=== PATIENT | male | born 1985 | race African-American/Black ===

== ENCOUNTER 2016-10-10 16:58 | Emergency (ER) | payer SELFPAY ==
[2016-10-10 17:04] VITALS: BP 160/119
[2016-10-10] MEDS ORDERED: NORMAL SALINE 1000 ML 1,000 ML IV ONE ×2 (17:15→18:18)
--- NOTE | 2016-10-10 17:20 | ER Document Report ---
ED General - General Chief Complaint: Abdominal Cramping Stated Complaint: DIZZINESS Time Seen by Provider: 10/10/16 17:14 Mode of Arrival: Ambulatory Information source: Patient Notes: 31-year-old male presents with complaints of abdominal cramping generalized weakness. Patient notes he works outside has not been hydrating well is only urinating twice a day. Patient concerned about dehydration. TRAVEL OUTSIDE OF THE [place] IN LAST 30 DAYS: No - HPI Onset: Other - 3 day duration Onset/Duration: Persistent Quality of pain: Achy, Cramping Severity: Mild Pain Level: 1 Associated symptoms: Weakness, Other Exacerbated by: Denies Relieved by: Denies Similar symptoms previously: No Recently seen / treated by doctor: No Past Medical History - Social History Smoking Status: Current Every Day Smoker Cigarette use (# per day): Yes Chew tobacco use (# tins/day): No Smoking Education Provided: No Family History: Reviewed & Not Pertinent Patient has suicidal ideation: No Patient has homicidal ideation: No - Past Medical History Cardiac Medical History: Reports: Hx Hypertension Renal/ Medical History: Denies: Hx Peritoneal Dialysis Review of Systems - Review of Systems Notes: REVIEW OF SYSTEMS: CONSTITUTIONAL : Denies fever, chills, or sweats. Denies recent illness. EENT: Denies eye, ear, throat, or mouth pain or symptoms. Denies nasal or sinus congestion or discharge. Denies throat, tongue, or mouth swelling or difficulty swallowing. CARDIOVASCULAR: Denies chest pain. Denies palpitations or racing or irregular heart beat. Denies ankle edema. RESPIRATORY: Denies cough, cold, or chest congestion. Denies shortness of breath, difficulty breathing, or wheezing. GASTROINTESTINAL: Admits to abdominal pain GENITOURINARY: Denies difficulty urinating, painful urination, burning, frequency, blood in urine, or discharge. MUSCULOSKELETAL: Denies back or neck pain or stiffness. Denies joint pain or swelling. SKIN: Denies rash, lesions or sores. HEMATOLOGIC : Denies easy bruising or bleeding. LYMPHATIC: Denies swollen, enlarged glands. NEUROLOGICAL: Generalized weakness PSYCHIATRIC: Denies anxiety or stress. Denies depression, suicidal ideation, or homicidal ideation. ALL OTHER SYSTEMS REVIEWED AND NEGATIVE. Dictation was performed using [employer] voice recognition software PHYSICAL EXAMINATION: GENERAL: Well-appearing, well-nourished and in no acute distress. HEAD: Atraumatic, normocephalic. EYES: Pupils equal round and reactive to light, extraocular movements intact, sclera anicteric, conjunctiva are normal. ENT: Nares patent, oropharynx clear without exudates. Moist mucous membranes. NECK: Normal range of motion, supple without lymphadenopathy LUNGS: Breath sounds clear to auscultation bilaterally and equal. No wheezes rales or rhonchi. HEART: Regular rate and rhythm without murmurs ABDOMEN: Soft, nontender, nondistended abdomen. No guarding, no rebound. No masses appreciated. Musculoskeletal: Normal range of motion, no pitting or edema. No cyanosis. NEUROLOGICAL: Cranial nerves grossly intact. Normal speech, normal gait. Normal sensory, motor exams PSYCH: Normal mood, normal affect. SKIN: Warm, Dry, normal turgor, no rashes or lesions noted. Physical Exam - Vital signs Vitals: Temp Pulse Resp BP Pulse Ox 98.3 F 94 14 160/119 H 100 10/10/16 17:00 10/10/16 17:00 10/10/16 17:00 10/10/16 17:00 10/10/16 17:00 Course - Re-evaluation Re-evalutation: 10/10/16 17:19 Presents with concerns for mild dehydration, overall looks quite well however we will rule out rhabdomyolysis given the exposure to heat and working outdoors 10/10/16 19:29 Creatinine is noted to be elevated at 1.54, CK is elevated as well however no significant sign of rhabdomyolysis, patient was given 2 L of fluids will be given supplemental potassium is otherwise well-appearing no distress I will discharge him home with very close follow. Mild elevation of liver enzymes are noted as well Patient has been made aware of all findings After performing a Medical Screening Examination, I estimate there is LOW risk for ACUTE APPENDICITIS, BOWEL OBSTRUCTION, ACUTE CHOLECYSTITIS, PERFORATED DIVERTICULITIS, INCARCERATED HERNIA, PANCREATITIS, or PERFORATED ULCER, thus I consider the discharge disposition reasonable. Also, there is no evidence or peritonitis, sepsis, or toxicity. I have reevaluated this patient multiple times and no significant life threatening changes are noted. The patient and I have discussed the diagnosis and risks, and we agree with discharging home with close follow-up with the understanding that symptoms and presentations can change. We also discussed returning to the Emergency Department immediately if new or worsening symptoms occur. We have discussed the symptoms which are most concerning (e.g., bloody stool, fever, changing or worsening pain, intractable vomiting - standard verbal up date) that necessitate immediate return. - Vital Signs Vital signs: Temp Pulse Resp BP Pulse Ox 98.3 F 94 14 160/119 H 100 10/10/16 17:00 10/10/16 17:00 10/10/16 17:00 10/10/16 17:00 10/10/16 17:00 - Laboratory Result Diagrams: 10/10/16 17:40 10/10/16 17:40 Laboratory results interpreted by me: 10/10/16 10/10/16 10/10/16 17:26 17:40 17:40 Monocytes % 13.1 H Potassium 3.3 L Chloride 95 L BUN 22 H Creatinine 1.56 H Est GFR (Non-Af Amer) 53 L Calcium 10.5 H Direct Bilirubin 0.5 H AST 126 H ALT 93 H Creatine Kinase 991 H Total Protein 10.2 H Albumin 5.3 H Urine Protein 30 H Urine Ketones TRACE H Urine Urobilinogen 2.0 H Discharge - Discharge Clinical Impression: Acute renal insufficiency, Dehydration, Elevated liver enzymes, Hypokalemia Condition: Stable Disposition: HOME, SELF-CARE Instructions: Dehydration ([facility]) Additional Instructions: Follow up with your physician tomorrow for further care or return to the ED IMMEDIATELY if symptoms worsen or new concerns occur. If you cannot afford to follow up with your primary care physician a list of low cost clinics have been provided at the end of your discharge papers as well.
[2016-10-10 17:43] LABS: AMORPHOUS SEDIMENT,URINE TRACE /HPF; APPEARANCE,URINE SLIGHTLY-CLOUDY; BILIRUBIN,URINE NEGATIVE (NEGATIVE); GLUCOSE, URINE NEGATIVE (NEGATIVE); KETONES,URINE TRACE mg/dL (NEGATIVE); LEUKOCYTE ESTERASE,URINE NEGATIVE (NEGATIVE); NITRITE,URINE NEGATIVE (NEGATIVE); PROTEIN,URINE 30 mg/dL (NEGATIVE); URINE SPECIFIC GRAVITY 1.026
[2016-10-10 18:03] LABS: ABSOLUTE EOSINOPHILS # (AUTO) 0.1 10^3/uL (0.0-0.6); ABSOLUTE MONOCYTES (AUTO) 0.7 10^3/uL (0.1-1.4); ABSOLUTE NEUT (AUTO) 2.6 10^3/uL (1.7-8.2); BASOPHILS % (AUTO) 0.8 % (0-2); EOSINOPHILS % (AUTO) 1.6 % (0-6); HEMATOCRIT 48.3 % (37.9-51.0); HEMOGLOBIN 16.5 g/dL (13.5-17.0); HGB HCT DIFFERENCE 1.2; LYMPHOCYTES % (AUTO) 36.8 % (13-45); MEAN CORPUSCULAR HEMOGLOBIN 30.6 pg (27.0-33.4); MEAN CORPUSCULAR HGB CONC 34.1 g/dL (32.0-36.0); MEAN CORPUSCULAR VOLUME 90 fl (80-97); MONOCYTES % (AUTO) 13.1 % (3-13); RED BLOOD COUNT 5.38 10^6/uL (4.35-5.55); SEGMENTED NEUTROPHILS % (AUTO) 47.7 % (42-78); WHITE BLOOD COUNT 5.4 10^3/uL (4.0-10.5)
[2016-10-10 18:12] LABS: ALANINE AMINOTRANSFERASE 93 U/L (21-72); ALBUMIN 5.3 g/dL (3.5-5.0); ALKALINE PHOSPHATASE 68 U/L (38-126); ANION GAP 18 (5-19); ASPARTATE AMINO TRANSFERASE 126 U/L (17-59); BILIRUBIN,DIRECT 0.5 mg/dL (0.0-0.4); BILIRUBIN,TOTAL 0.9 mg/dL (0.2-1.3); BLOOD UREA NITROGEN 22 mg/dL (7-20); CALCIUM 10.5 mg/dL (8.4-10.2); CARBON DIOXIDE 27 mmol/L (22-30); CHLORIDE 95 mmol/L (98-107); CREATINE KINASE 991 U/L (55-170); CREATININE RESULT 1.56 mg/dL (0.52-1.25); GLUCOSE 97 mg/dL (75-110); LIPASE 229.3 U/L (23-300); POTASSIUM 3.3 mmol/L (3.6-5.0); SODIUM 140.3 mmol/L (137-145); TOTAL PROTEIN 10.2 g/dL (6.3-8.2)
[2016-10-10] MEDS ORDERED: POTASSIUM CHLORIDE 10 MEQ TABLET.SA PO ONE (19:29)
== END 2016-10-10 19:48 | disposition home or self-care (01) ==
LOC: ER 16:58
DX: E86.0 Dehydration (principal); E87.6 Hypokalemia; R74.8 Abnormal levels of other serum enzymes; N28.9 Disorder of kidney and ureter, unspecified; R10.9 Unspecified abdominal pain; R53.1 Weakness; F17.210 Nicotine dependence, cigarettes, uncomplicated; I10 Essential (primary) hypertension
CPT/HCPCS: 99284; 36415; 82550; 83690; 85025; 80053; 81001; J7030

== ENCOUNTER 2017-10-07 11:38 | Emergency (ER) | payer SELFPAY ==
[2017-10-07 11:42] VITALS: BP 154/84
[2017-10-07] MEDS ORDERED: NORMAL SALINE 1000 ML 1,000 ML IV ONE ×2 (11:53→13:33)
--- NOTE | 2017-10-07 11:55 | ER Document Report ---
ED Medical Screen (RME) - General Chief Complaint: Dizziness Stated Complaint: DIZZINESS Time Seen by Provider: 10/07/17 11:49 Notes: RAPID MEDICAL EVALUATION DISCLOSURE I have seen this patient as part of a Rapid Medical Evaluation and, if applicable, placed any initially appropriate orders. The patient will be seen and fully evaluated, including a full history and physical exam, by a provider ( in Main ED or Fast Track) when a room becomes available. 32-year-old male here with complaints of generalized body cramps and lightheadedness ongoing for the past 1 week but progressively worsening. He has also had dark colored urine and has not urinated since yesterday evening despite having consumed 7 bottles of water. 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 He denies previous history of rhabdomyolysis. Denies previous history of acute renal failure. Denies heart failure. Exam CTAB RRR TRAVEL OUTSIDE OF THE [place] IN LAST 30 DAYS: No - Related Data Allergies/Adverse Reactions: No Known Allergies Allergy (Unverified 10/07/17 11:38) Past Medical History - Social History Chew tobacco use (# tins/day): No Frequency of alcohol use: Social Drug Abuse: None - Past Medical History Cardiac Medical History: Reports: Hx Hypertension Renal/ Medical History: Denies: Hx Peritoneal Dialysis Physical Exam - Vital signs Vitals: Temp Pulse Resp BP Pulse Ox 99.0 F 100 20 154/84 H 100 10/07/17 11:41 10/07/17 11:41 10/07/17 11:41 10/07/17 11:41 10/07/17 11:41 Course - Vital Signs Vital signs: Temp Pulse Resp BP Pulse Ox 99.0 F 100 20 154/84 H 100 10/07/17 11:41 10/07/17 11:41 10/07/17 11:41 10/07/17 11:41 10/07/17 11:41
[2017-10-07 12:30] LABS: ABSOLUTE BASOPHILS # (AUTO) 0.1 10^3/uL (0.0-0.2); ABSOLUTE LYMPHOCYTES (AUTO) 1.1 10^3/uL (0.5-4.7); ABSOLUTE MONOCYTES (AUTO) 0.8 10^3/uL (0.1-1.4); BASOPHILS % (AUTO) 1.2 % (0-2); EOSINOPHILS % (AUTO) 0.5 % (0-6); HEMATOCRIT 42.8 % (37.9-51.0); HEMOGLOBIN 14.9 g/dL (13.5-17.0); LYMPHOCYTES % (AUTO) 18.4 % (13-45); MEAN CORPUSCULAR HEMOGLOBIN 30.4 pg (27.0-33.4); MEAN CORPUSCULAR HGB CONC 34.7 g/dL (32.0-36.0); MEAN CORPUSCULAR VOLUME 88 fl (80-97); MONOCYTES % (AUTO) 13.4 % (3-13); PLATELET COUNT 256 10^3/uL (150-450); RED BLOOD COUNT 4.89 10^6/uL (4.35-5.55); RED CELL DISTRIBUTION WIDTH 14.2 % (11.5-14.0); SEGMENTED NEUTROPHILS % (AUTO) 66.5 % (42-78); TOTAL CELLS COUNTED % (AUTO) 100 %
[2017-10-07 12:51] LABS: ALANINE AMINOTRANSFERASE 139 U/L (21-72); ALBUMIN 5.9 g/dL (3.5-5.0); ALKALINE PHOSPHATASE 61 U/L (38-126); ANION GAP 18 (5-19); ASPARTATE AMINO TRANSFERASE 149 U/L (17-59); BILIRUBIN,DIRECT 0.5 mg/dL (0.0-0.4); BILIRUBIN,TOTAL 1.1 mg/dL (0.2-1.3); BLOOD UREA NITROGEN 16 mg/dL (7-20); CALCIUM 11.5 mg/dL (8.4-10.2); CARBON DIOXIDE 33 mmol/L (22-30); CHLORIDE 92 mmol/L (98-107); CREATINE KINASE 859 U/L (55-170); GLUCOSE 100 mg/dL (75-110); PHOSPHORUS 4.7 mg/dL (2.5-4.5); SODIUM 143.3 mmol/L (137-145); TOTAL PROTEIN 10.5 g/dL (6.3-8.2)
[2017-10-07 12:53] LABS: POTASSIUM 3.2 mmol/L (3.6-5.0)
[2017-10-07] MEDS ORDERED: DIAZEPAM INJ 10 MG/2 ML DISP.SYRIN IV ONE (13:34)
[2017-10-07] MEDS ORDERED: KETOROLAC TROMETHAMINE INJ/PF 30 MG/1 ML SDV IV ONE (13:41)
[2017-10-07] MEDS ORDERED: METOCLOPRAMIDE HCL INJ/PF 10 MG/2 ML SDV IV ONE (13:42)
[2017-10-07 14:24] LABS: APPEARANCE,URINE SLIGHTLY-CLOUDY; BILIRUBIN,URINE NEGATIVE (NEGATIVE); COLOR,URINE YELLOW; GLUCOSE, URINE NEGATIVE (NEGATIVE); KETONES,URINE TRACE mg/dL (NEGATIVE); LEUKOCYTE ESTERASE,URINE NEGATIVE (NEGATIVE); NITRITE,URINE NEGATIVE (NEGATIVE); PROTEIN,URINE NEGATIVE (NEGATIVE)
--- NOTE | 2017-10-07 14:26 | ER Document Report ---
ED Dizziness/Weakness - General Chief Complaint: Dizziness Stated Complaint: DIZZINESS Time Seen by Provider: 10/07/17 11:49 Mode of Arrival: Ambulatory Information source: Patient Notes: Patient is a 32-year-old male who presents to the ER today for upper and lower extremity cramping, dehydration, dizziness 2 days. Patient states that he works outside and has not been allowed to drink a lot of water by his employer over the past week. It has been upwards of 90 outside every day. Patient had the exact same thing happened last October. He denies any medical history stating that he is very healthy otherwise. TRAVEL OUTSIDE OF THE [place] IN LAST 30 DAYS: No - Related Data Allergies/Adverse Reactions: No Known Allergies Allergy (Unverified 10/07/17 11:38) Past Medical History - General Information source: Patient - Social History Smoking Status: Current Every Day Smoker Chew tobacco use (# tins/day): No Frequency of alcohol use: Social Drug Abuse: None Family History: Reviewed & Not Pertinent Patient has suicidal ideation: No Patient has homicidal ideation: No - Past Medical History Cardiac Medical History: Reports: Hx Hypertension Renal/ Medical History: Denies: Hx Peritoneal Dialysis Review of Systems - Review of Systems Constitutional: No symptoms reported EENT: No symptoms reported Cardiovascular: No symptoms reported Respiratory: No symptoms reported Gastrointestinal: No symptoms reported Genitourinary: No symptoms reported Male Genitourinary: No symptoms reported Musculoskeletal: See HPI Skin: No symptoms reported Hematologic/Lymphatic: No symptoms reported Neurological/Psychological: No symptoms reported Physical Exam - Vital signs Vitals: Temp Pulse Resp BP Pulse Ox 99.0 F 100 20 154/84 H 100 10/07/17 11:41 10/07/17 11:41 10/07/17 11:41 10/07/17 11:41 10/07/17 11:41 - Notes Notes: PHYSICAL EXAMINATION: GENERAL: Well-appearing and in no acute distress. HEAD: Atraumatic, normocephalic. EYES: Pupils equal round and reactive to light, extraocular movements intact, sclera anicteric, conjunctiva are normal. ENT: ear canals without erythema or foreign body, TMs pearly lloyd with good bony landmarks, nares patent, oropharynx clear without exudates. Moist mucous membranes. NECK: Normal range of motion, supple without lymphadenopathy LUNGS: CTAB and equal. No wheezes rales or rhonchi. HEART: Regular rate and rhythm without murmurs ABDOMEN: Soft, no tenderness. No guarding, no rebound BACK: no vertebral tenderness, normal ROM GI/: no CVA tenderness EXTREMITIES: Normal range of motion, no pitting edema. No cyanosis. NEUROLOGICAL: Cranial nerves grossly intact. Normal sensory/motor exams. PSYCH: Normal mood, normal affect. SKIN: Warm, Dry, normal turgor, no rashes or lesions noted Course - Re-evaluation Re-evalutation: 10/07/17 14:23 Liver enzymes are elevated, CK is 890, kidney function mildly elevated with a 1.4 creatinine. Patient does not want to stay. He feels much better after 1 L of fluids, we will give him another liter of fluids and I will send him home with a few Valium to help with his muscle cramping. He is advised to stay home , out of the heat and drink plenty of water over the next couple of days, return with any worsening symptoms. I did offer him admission today but he declines. - Vital Signs Vital signs: Temp Pulse Resp BP Pulse Ox 99.0 F 100 20 154/84 H 100 10/07/17 11:41 10/07/17 11:41 10/07/17 11:41 10/07/17 11:41 10/07/17 11:41 - Laboratory Result Diagrams: 10/07/17 12:15 10/07/17 12:15 Laboratory results interpreted by me: 10/07/17 10/07/17 12:15 12:15 RDW 14.2 H Monocytes % 13.4 H Potassium 3.2 L Chloride 92 L Carbon Dioxide 33 H Creatinine 1.49 H Est GFR (Non-Af Amer) 55 L Calcium 11.5 H Phosphorus 4.7 H Direct Bilirubin 0.5 H AST 149 H ALT 139 H Creatine Kinase 859 H Total Protein 10.5 H Albumin 5.9 H Discharge - Discharge Clinical Impression: Heat exhaustion due to water depletion Qualifiers: Encounter type: initial encounter Qualified Code(s): T67.3XXA - Heat exhaustion , anhydrotic, initial encounter Condition: Stable Disposition: HOME, SELF-CARE Additional Instructions: Return immediately for any new or worsening symptoms. Follow up with primary care provider, call tomorrow to make followup appointment. Please drink at least 90 ounces of water a day for at least the next 5 days to replenish your water and stay out of the heat as much as possible. Prescriptions: Diazepam [Valium 2 mg Tablet] 2 mg PO Q6HP PRN #5 tablet PRN Reason: Forms: Return to Work
== END 2017-10-07 15:54 | disposition home or self-care (01) ==
LOC: ER 11:38
DX: T67.3XXA Heat exhaustion, anhydrotic, initial encounter (principal); R42 Dizziness and giddiness; E86.0 Dehydration; R25.2 Cramp and spasm; F17.200 Nicotine dependence, unspecified, uncomplicated; R74.8 Abnormal levels of other serum enzymes
CPT/HCPCS: 99284; 96360; 96361; 36415; 82550; 83735; 84100; 85025; 80053; 81001; J7030

== ENCOUNTER 2017-10-19 10:15 | Emergency (ER) | payer SELFPAY ==
[2017-10-19] MEDS ORDERED: NORMAL SALINE 1000 ML 1,000 ML IV ONE (10:24)
[2017-10-19] MEDS ORDERED: ONDANSETRON 4 MG TAB.RAPDIS SL ONE (10:24)
--- NOTE | 2017-10-19 10:26 | ER Document Report ---
ED Medical Screen (RME) - General Chief Complaint: Abdominal Pain Stated Complaint: POSSIBLE DEHYDRATION Time Seen by Provider: 10/19/17 10:20 Mode of Arrival: Ambulatory Information source: Patient TRAVEL OUTSIDE OF THE [place] IN LAST 30 DAYS: No - HPI Patient complains to provider of: Dehydration, diffuse cramping, vomiting Onset: Yesterday Onset/Duration: Gradual, Persistent, Worse Quality of pain: Achy, Cramping Severity: Moderate Pain Level: 3 Associated Symptoms: Nausea, Vomiting Exacerbated by: Denies Relieved by: Denies Similar symptoms previously: Yes Recently seen / treated by doctor: Yes Notes: 10/19/17 10:25 Patient is a 32-year-old otherwise healthy male presenting to the emergency room for a second time complaining of dehydration with diffuse body aches and cramping, as well as vomiting that started yesterday, 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, he has been drinking water supplemented with Pedialyte and increased amounts but his symptoms continued to worsen, he reports minimal urine production as well - Related Data Allergies/Adverse Reactions: No Known Allergies Allergy (Verified 10/19/17 10:15) Past Medical History - Past Medical History Cardiac Medical History: Reports: Hx Hypertension Renal/ Medical History: Denies: Hx Peritoneal Dialysis Physical Exam - Vital signs Vitals: Temp Pulse Resp BP Pulse Ox 98.8 F 93 14 153/81 H 99 10/19/17 10:19 10/19/17 10:19 10/19/17 10:19 10/19/17 10:19 10/19/17 10:19 Course - Vital Signs Vital signs: Temp Pulse Resp BP Pulse Ox 98.8 F 93 14 153/81 H 99 10/19/17 10:19 10/19/17 10:19 10/19/17 10:19 10/19/17 10:19 10/19/17 10:19
[2017-10-19 10:59] LABS: ABSOLUTE LYMPHOCYTES (AUTO) 1.3 10^3/uL (0.5-4.7); ABSOLUTE MONOCYTES (AUTO) 0.6 10^3/uL (0.1-1.4); ABSOLUTE NEUT (AUTO) 2.9 10^3/uL (1.7-8.2); EOSINOPHILS % (AUTO) 0.6 % (0-6); HEMATOCRIT 42.6 % (37.9-51.0); LYMPHOCYTES % (AUTO) 26.7 % (13-45); MEAN CORPUSCULAR HEMOGLOBIN 30.4 pg (27.0-33.4); MEAN CORPUSCULAR HGB CONC 35.1 g/dL (32.0-36.0); MEAN CORPUSCULAR VOLUME 87 fl (80-97); MONOCYTES % (AUTO) 12.9 % (3-13); PLATELET COUNT 281 10^3/uL (150-450); RED BLOOD COUNT 4.92 10^6/uL (4.35-5.55); RED CELL DISTRIBUTION WIDTH 14.5 % (11.5-14.0); SEGMENTED NEUTROPHILS % (AUTO) 58.8 % (42-78); TOTAL CELLS COUNTED % (AUTO) 100 %; WHITE BLOOD COUNT 4.9 10^3/uL (4.0-10.5)
[2017-10-19 11:42] LABS: ALANINE AMINOTRANSFERASE 98 U/L (21-72); ALBUMIN 5.4 g/dL (3.5-5.0); ALKALINE PHOSPHATASE 56 U/L (38-126); ANION GAP 18 (5-19); ASPARTATE AMINO TRANSFERASE 134 U/L (17-59); BILIRUBIN,DIRECT 0.4 mg/dL (0.0-0.4); BILIRUBIN,TOTAL 0.9 mg/dL (0.2-1.3); BLOOD UREA NITROGEN 21 mg/dL (7-20); CALCIUM 10.6 mg/dL (8.4-10.2); CARBON DIOXIDE 33 mmol/L (22-30); CHLORIDE 91 mmol/L (98-107); CREATINE KINASE 975 U/L (55-170); GLUCOSE 107 mg/dL (75-110)
[2017-10-19] MEDS ORDERED: POTASSIUM CHLORIDE 10 MEQ CAPSULE.ER PO ONE (11:48)
[2017-10-19] MEDS ORDERED: POTASSI CL 40 MEQ/D5-1/2NS 1L 40 MEQ/1,000 ML RTUINJ IV ONE (11:49)
[2017-10-19 11:57] LABS: APPEARANCE,URINE SLIGHTLY-CLOUDY; BILIRUBIN,URINE NEGATIVE (NEGATIVE); COLOR,URINE YELLOW; GLUCOSE, URINE NEGATIVE (NEGATIVE); KETONES,URINE TRACE mg/dL (NEGATIVE); LEUKOCYTE ESTERASE,URINE NEGATIVE (NEGATIVE); NITRITE,URINE NEGATIVE (NEGATIVE); PROTEIN,URINE NEGATIVE (NEGATIVE); URINE SPECIFIC GRAVITY 1.012; UROBILINOGEN,URINE NEGATIVE mg/dL (<2.0)
--- NOTE | 2017-10-19 15:10 | ER Document Report ---
ED General - General Chief Complaint: Abdominal Pain Stated Complaint: POSSIBLE DEHYDRATION Time Seen by Provider: 10/19/17 10:20 Mode of Arrival: Ambulatory Notes: Patient presents to the emergency department feeling weak and having cramps, primarily in the lower extremities in the feet, calves, and thighs, as well as in his hands. This is been going on for the past couple of days, since Tuesday. He also had a similar occurrence about 2 weeks ago and was seen here and received IV fluids and was discharged. Noted on that visit the patient's CPK level was in the 800s. Patient says he works outside, [employer], where it is been very hot and humid recently. Says he vomited once last night and again today. No diarrhea. No fevers. TRAVEL OUTSIDE OF THE [place] IN LAST 30 DAYS: No - Related Data Allergies/Adverse Reactions: No Known Allergies Allergy (Verified 10/19/17 10:15) Past Medical History - General Information source: Patient - Social History Smoking Status: Current Every Day Smoker Chew tobacco use (# tins/day): No Frequency of alcohol use: Social Drug Abuse: None Family History: Reviewed & Not Pertinent Patient has suicidal ideation: No Patient has homicidal ideation: No - Past Medical History Cardiac Medical History: Reports: Hx Hypertension Review of Systems - Review of Systems Notes: REVIEW OF SYSTEMS: CONSTITUTIONAL : Denies fever. EENT: Denies eye, ear, nose or mouth or throat pain or other symptoms. CARDIOVASCULAR: Denies chest pain. RESPIRATORY: Denies cough, chest congestion, or shortness of breath. GASTROINTESTINAL: Denies abdominal pain but has had nausea and did vomit a couple of times. No diarrhea. GENITOURINARY: Denies difficulty or painful urinating, urinary frequency, blood in urine. MUSCULOSKELETAL: Denies back or neck pain. Denies joint pain or swelling. SKIN: Denies rash or skin lesions. NEUROLOGICAL: Denies LOC or altered mental status. Denies headache. Denies sensory loss or motor deficits. ALL OTHER SYSTEMS REVIEWED AND NEGATIVE. Physical Exam - Vital signs Vitals: Temp Pulse Resp BP Pulse Ox 98.8 F 93 14 153/81 H 99 10/19/17 10:19 10/19/17 10:19 10/19/17 10:19 10/19/17 10:19 10/19/17 10:19 Interpretation: Normal - Notes Notes: PHYSICAL EXAMINATION: GENERAL: Well-appearing, in no acute distress. First IV is almost completely infused. Not having much cramping now. HEAD: Atraumatic, normocephalic. EYES: Pupils equal round and reactive to light, extraocular movements intact. ENT: oropharynx clear without exudates. Moist mucous membranes. NECK: Normal range of motion, supple. LUNGS: Breath sounds clear and equal bilaterally. HEART: Regular rate and rhythm without murmurs. ABDOMEN: Soft, nontender. No guarding or rebound. No masses. BACK: No tenderness throughout entire back. EXTREMITIES: Normal range of motion without pain. NEUROLOGICAL: Normal speech, normal gait. Normal sensory, motor, and reflex exams. Awake, alert, and oriented x3. Cranial nerves normal. PSYCH: Normal mood, normal affect. SKIN: Warm, dry, no rashes. Course - Re-evaluation Re-evalutation: 10/19/17 15:19 Discussed patient's lab findings with him. Specifically discussed his elevated CPK level. Pointed out to him that it is potentially a serious threat to his kidneys and he must avoid continuing to have an elevated CPK, as it was elevated when he was here a couple weeks ago, also. I have given him a note for work until Tuesday. Told him he needs to drink plenty of fluids and hydrate himself well over the weekend. Note for work until Tuesday. Advised him to have repeat blood work done next week to see that his kidney functions are doing better and that the CPK level is declining. - Vital Signs Vital signs: Temp Pulse Resp BP Pulse Ox 98.1 F 93 21 H 123/83 97 10/19/17 15:01 10/19/17 10:19 10/19/17 15:01 10/19/17 15:01 10/19/17 15:01 - Laboratory Result Diagrams: 10/19/17 10:42 10/19/17 10:42 Laboratory results interpreted by me: 10/19/17 10/19/17 10/19/17 10:42 10:42 11:40 RDW 14.5 H Potassium 3.0 L* Chloride 91 L Carbon Dioxide 33 H BUN 21 H Creatinine 1.28 H Calcium 10.6 H AST 134 H ALT 98 H Creatine Kinase 975 H Total Protein 10.0 H Albumin 5.4 H Urine Ketones TRACE H Urine Blood SMALL H Discharge - Discharge Clinical Impression: Heat cramps, Dehydration, Elevated CPK Condition: Stable Disposition: HOME, SELF-CARE Additional Instructions: Dehydration Dehydration can result from vomiting or diarrhea, fever, or decreased intake of fluids. If severe, hospitalization and intravenous fluids may be required. Most cases are treated at home with fluids by mouth. For the next 24 hours, drink lots of clear fluids. In mild cases, this can be soda pop or sports drinks. For more severe dehydration, the doctor may recommend special fluids such as Pedialyte or Lytren. Try to get three liters ( 3 quarts) of fluid per day. If vomiting occurs, continue to drink the fluids frequently (every 15 to 20 minutes), but in small amounts (one or two ounces). Depending on the type of dehydration, the doctor may prescribe antinausea medicine or potassium replacements. Call the doctor or return for re-examination if you become progressively weak, vomit repeatedly, or have other new symptoms. Intravenous (IV) Fluids As part of your care today, you received intravenous (IV) fluids. IV fluids are administered to patients who are dehydrated or to those who have certain chemical (electrolyte) abnormalities that need correcting. There is a chemical called creatinine phosphokinase or CPK for short that is in your body that comes from damaged muscle cells when you become overheated or over exercise. This chemical is important because it can cause permanent kidney damage. It is very important that you not get yourself into the same condition you were and when you came in today. We recommend that you have your kidney functions and the level of the CPK rechecked in about 5 days. A primary care provider can order that for you. Drink plenty of fluids. I am giving her a note for work until Tuesday. Avoid getting overheated and over exerted when you do return to work. FOLLOW-UP CARE: If you have been referred to a physician for follow-up care, call the physician s office for an appointment as you were instructed or within the next two days. If you experience worsening or a significant change in your symptoms, notify the physician immediately or return to the Emergency Department at any time for re-evaluation. Forms: Return to Work
[2017-10-19 15:32] VITALS: BP 123/83
== END 2017-10-19 15:32 | disposition home or self-care (01) ==
LOC: ER 10:15
DX: T67.2XXA Heat cramp, initial encounter (principal); X58.XXXA Exposure to other specified factors, initial encounter; E86.0 Dehydration; R94.4 Abnormal results of kidney function studies; R10.9 Unspecified abdominal pain
CPT/HCPCS: 99284; 96361; 96365; 96366; 36415; 82553; 82550; 83735; 85025; 80053; 81001; J3480; S0119; J7030

== ENCOUNTER 2018-08-14 12:08 | Emergency (ER) | payer SELFPAY ==
--- NOTE | 2018-08-14 13:22 | ER Document Report ---
HPI - HPI Time Seen by Provider: 08/14/18 12:46 Pain Level: 4 Context: Patient is a 33-year-old male who presents the emergency department with a chief complaint of right duffy pain. He hit his duffy on a tow hitch 4 days ago. He states that there has been some swelling and erythema to the area. States that the swelling has gone down a little bit, but was worried for possible infection. He denies any fever. He did see some swelling. - CONSTITUTIONAL Constitutional: DENIES: Fever, Chills - EENT EENT: DENIES: Sore Throat, Ear Pain - NEURO Neurology: DENIES: Headache, Weakness, Vision blurred, Dizzinesss / Vertigo - CARDIOVASCULAR Cardiovascular: DENIES: Chest pain - RESPIRATORY Respiratory: DENIES: Trouble Breathing, Coughing - GASTROINTESTINAL Gastrointestinal: DENIES: Abdominal Pain, Nausea, Patient vomiting - MUSCULOSKELETAL Musculoskeletal: REPORTS: Extremity pain - Right duffy, Swelling - Right duffy - DERM Skin Color: Normal Skin Problems: None Past Medical History - Social History Smoking Status: Never Smoker Family History: Reviewed & Not Pertinent - Past Medical History Cardiac Medical History: Reports: Hx Hypertension Renal/ Medical History: Denies: Hx Peritoneal Dialysis Vertical Provider Document - CONSTITUTIONAL Agree With Documented VS: Yes Exam Limitations: No Limitations General Appearance: No Apparent Distress - INFECTION CONTROL TRAVEL OUTSIDE OF THE [place] IN LAST 30 DAYS: No - HEENT HEENT: Atraumatic, Normocephalic, PERRLA - NECK Neck: Normal Inspection - RESPIRATORY Respiratory: Breath Sounds Normal, No Respiratory Distress - CARDIOVASCULAR Cardiovascular: Regular Rate, Regular Rhythm Pulses: Normal: Radial, Posterior tibial, Dorsalis pedis - GI/ABDOMEN Gastrointestinal: Abdomen Soft - MUSCULOSKELETAL/EXTREMETIES Musculoskeletal/Extremeties: FROM, Tender - Left duffy, Edema - Left duffy, with erythema - NEURO Level of Consciousness: Awake, Alert, Appropriate Motor/Sensory: No Motor Deficit, No Sensory Deficit, No Pronator Drift - DERM Integumentary: Warm, Dry, Abscess - Left duffy Course - Re-evaluation Re-evalutation: 08/14/18 13:22 Bedside ultrasound was done by myself, and pockets of fluid were noted in the area, consistent with an abscess and surrounding cellulitis. Incision and drainage will be done. He will also be given Anderson to help with his pain. 08/14/18 14:29 Patient's x-ray is negative for any acute fracture. Incision and drainage was made in the patient's right duffy. There was some purulent drainage noted the procedure, along with some clots. He will be started on Keflex and Bactrim. Verbal discharge instructions were given to the patient. They verbalized understanding. They are stable for discharge. - Vital Signs Vital signs: Temp Pulse Resp BP Pulse Ox 99.2 F 80 18 167/100 H 100 08/14/18 12:18 08/14/18 12:18 08/14/18 12:18 08/14/18 12:18 08/14/18 12:18 Procedures - Incision and Drainage Right duffy Type: Simple Anesthetic type: 1% Lidocaine mL's of anesthetic: 5 Blade size: 11 I&D procedure: Betadine prep applied, Shurclens applied Incision Method: Incision made by scalpel Amount/type of drainage: 10 mls blood/purulent drainage; blood clots - Immobilization Right Leg Pre-Proc Neuro Vasc Exam: Normal Immobilizer type: Phillip wrap Performed by: PCT Post-Proc Neuro Vasc Exam: Normal, Unchanged from pre-exam Alignment checked and good: Yes Discharge - Discharge Clinical Impression: Abscess Cellulitis Qualifiers: Site of cellulitis: extremity Site of cellulitis of extremity: lower extremity Laterality: right Qualified Code(s): L03.115 - Cellulitis of right lower limb Condition: Stable Disposition: HOME, SELF-CARE Instructions: Abscess ([facility]), Cephalexin ([facility]), Post Incision and Drainage, Trimethoprim-Sulfa ([facility]) Additional Instructions: You were seen for an abscess that required drainage. Please clean this area with soap and water twice daily and apply a topical antibiotic. Dress the area after each cleaning. Please take all your medication as prescribed. Continue to apply the Phillip wrap to help with swelling. You can take Tylenol 1000 mg and Motrin 600 mg every 6 hours for your pain. Please return if you develop fever, vomiting, the pain at the site worsens, you notice spreading redness from the area, or you have any other symptoms that are concerning to you. Prescriptions: Cephalexin Monohydrate [Keflex 500 mg Capsule] 500 mg PO Q6H 7 Days #28 capsule Sulfamethoxazole/Trimethoprim [Bactrim Ds Tablet] 1 each PO BID 7 Days #14 tablet Forms: Return to Work Referrals: [facility] [Provider Group] - Follow up as needed
[2018-08-14] MEDS ORDERED: HYDROCODONE/ACETAMINOPHEN 5-325 MG TABLET PO ONE (13:23)
[2018-08-14] MEDS ORDERED: LIDOCAINE 1% INJ-PF (10 MG/ML) 30 ML SDV INJ ONE (13:23)
--- NOTE | 2018-08-14 13:56 | RADIOLOGY REPORT (SQ) ---
EXAM DESCRIPTION: TIBIA FIBULA RIGHT COMPLETED DATE/TIME: 08/14/2018 1:44 pm REASON FOR STUDY: contusion/swelling COMPARISON: None. NUMBER OF VIEWS: Two views. TECHNIQUE: Two radiographic images acquired of the right tibia and fibula to include the knee and an kle in at least one projection. LIMITATIONS: None. FINDINGS: MINERALIZATION: Normal. BONES: No acute fracture or dislocation. No worrisome bone lesions. SOFT TISSUES: Anterior soft tissue swelling. No foreign body. OTHER: No other significant finding. IMPRESSION: ANTERIOR SOFT TISSUE SWELLING. NO FRACTURE OR OTHER SIGNIFICANT FINDINGS. TECHNICAL DOCUMENTATION: JOB ID: [id number] [employer]- All Rights Reserved Reading location - IP/workstation name: [email or web address]
[2018-08-14 14:55] VITALS: BP 156/107
== END 2018-08-14 14:55 | disposition home or self-care (01) ==
LOC: ER 12:08
DX: L02.416 Cutaneous abscess of left lower limb (principal); L03.115 Cellulitis of right lower limb; M79.661 Pain in right lower leg; W22.8XXA Striking against or struck by other objects, initial encounter; I10 Essential (primary) hypertension
CPT/HCPCS: 99283; 73590; 10060; J3490

== ENCOUNTER 2018-08-23 14:31 | Emergency (ER) | payer SELFPAY ==
[2018-08-23] MEDS ORDERED: ONDANSETRON HCL INJ/PF 4 MG/2 ML SDV IV ONE (15:50)
[2018-08-23] MEDS ORDERED: METHOCARBAMOL 750 MG TABLET PO ONE (15:51)
--- NOTE | 2018-08-23 15:55 | ER Document Report ---
ED Medical Screen (RME) - General Chief Complaint: Urinary Problem Stated Complaint: BODY CRAMPING Time Seen by Provider: 08/23/18 15:44 TRAVEL OUTSIDE OF THE [place] IN LAST 30 DAYS: No - HPI Notes: 08/23/18 15:52 Patient is a 33-year-old male with a previous history of heat exhaustion who presents complaining of generalized body cramping, anuric x36 hours and intermittent nausea that began yesterday. 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 Patient states that he has been pushing fluids especially he can, but states that he still feels dehydrated. Denies drug allergies. He was seen about 9 days ago and had an incision and drainage performed to his right anterior lower leg and was placed on Bactrim as well as Keflex. Patient has continued to notice swelling to the leg, but it is improved from initial onset. Denies RAMOS, fever, neck pain, URI, CP, SOB, Abd pain. I have treated and performed a rapid initial assessment of this patient. A comprehensive ED assessment and evaluation of the patient, analysis of test results and completion of medical decision making process will be conducted by additional ED providers. PHYSICAL EXAMINATION: GENERAL: Well-appearing, well-nourished and in no acute distress. A&Ox4. Answers questions appropriately. LUNGS: Breath sounds clear to auscultation bilaterally and equal. No wheezes rales or rhonchi. HEART: Regular rate and rhythm without murmurs, rubs, gallops. - Related Data Allergies/Adverse Reactions: No Known Allergies Allergy (Verified 08/23/18 14:34) Past Medical History - Past Medical History Cardiac Medical History: Reports: Hx Hypertension Renal/ Medical History: Denies: Hx Peritoneal Dialysis Physical Exam - Vital signs Vitals: Temp Pulse Resp BP Pulse Ox 98.3 F 85 18 142/99 H 99 08/23/18 14:45 08/23/18 14:45 08/23/18 14:45 08/23/18 14:45 08/23/18 14:45 Course - Vital Signs Vital signs: Temp Pulse Resp BP Pulse Ox 98.3 F 85 18 142/99 H 99 08/23/18 14:45 08/23/18 14:45 08/23/18 14:45 08/23/18 14:45 08/23/18 14:45
[2018-08-23] MEDS: NORMAL SALINE 1000 ML 1,000 ML IV PRN ×2 (16:50→17:48)
[2018-08-23 17:08] LABS: ABSOLUTE EOSINOPHILS # (AUTO) 0.1 10^3/uL (0.0-0.6); ABSOLUTE LYMPHOCYTES (AUTO) 1.1 10^3/uL (0.5-4.7); ABSOLUTE MONOCYTES (AUTO) 0.7 10^3/uL (0.1-1.4); ABSOLUTE NEUT (AUTO) 2.5 10^3/uL (1.7-8.2); BASOPHILS % (AUTO) 0.9 % (0-2); EOSINOPHILS % (AUTO) 1.2 % (0-6); HEMATOCRIT 43.2 % (37.9-51.0); HEMOGLOBIN 14.7 g/dL (13.5-17.0); LYMPHOCYTES % (AUTO) 25.7 % (13-45); MEAN CORPUSCULAR HEMOGLOBIN 30.6 pg (27.0-33.4); MEAN CORPUSCULAR HGB CONC 34.1 g/dL (32.0-36.0); MEAN CORPUSCULAR VOLUME 90 fl (80-97); MONOCYTES % (AUTO) 15.8 % (3-13); PLATELET COUNT 247 10^3/uL (150-450); RED BLOOD COUNT 4.81 10^6/uL (4.35-5.55); RED CELL DISTRIBUTION WIDTH 14.9 % (11.5-14.0); SEGMENTED NEUTROPHILS % (AUTO) 56.4 % (42-78); TOTAL CELLS COUNTED % (AUTO) 100 %; WHITE BLOOD COUNT 4.3 10^3/uL (4.0-10.5)
[2018-08-23 17:28] LABS: ALANINE AMINOTRANSFERASE 122 U/L (21-72); ALBUMIN 5.5 g/dL (3.5-5.0); ALKALINE PHOSPHATASE 77 U/L (38-126); ANION GAP 16 (5-19); ASPARTATE AMINO TRANSFERASE 135 U/L (17-59); BILIRUBIN,DIRECT 0.5 mg/dL (0.0-0.4); BILIRUBIN,TOTAL 1.3 mg/dL (0.2-1.3); BLOOD UREA NITROGEN 19 mg/dL (7-20); CARBON DIOXIDE 30 mmol/L (22-30); CHLORIDE 97 mmol/L (98-107); CREATINE KINASE 709 U/L (55-170); GLUCOSE 86 mg/dL (75-110); POTASSIUM 3.7 mmol/L (3.6-5.0); SODIUM 142.5 mmol/L (137-145); TOTAL PROTEIN 10.2 g/dL (6.3-8.2)
[2018-08-23] MEDS ORDERED: NORMAL SALINE 1000 ML 1,000 ML IV ONE (19:33)
[2018-08-23 19:56] LABS: APPEARANCE,URINE TURBID; BILIRUBIN,URINE NEGATIVE (NEGATIVE); GLUCOSE, URINE NEGATIVE (NEGATIVE); KETONES,URINE TRACE mg/dL (NEGATIVE); LEUKOCYTE ESTERASE,URINE NEGATIVE (NEGATIVE); NITRITE,URINE NEGATIVE (NEGATIVE); PROTEIN,URINE 100 mg/dL (NEGATIVE)
[2018-08-23 20:03] LABS: COLOR,URINE YELLOW
--- NOTE | 2018-08-23 20:41 | ER Document Report ---
ED General - General Chief Complaint: Urinary Problem Stated Complaint: BODY CRAMPING Time Seen by Provider: 08/23/18 15:44 Mode of Arrival: Ambulatory Information source: Patient, [facility] Records Notes: Patient is a 33-year-old male with a previous history of heat exhaustion who presents complaining of generalized body cramping, anuric x36 hours and intermittent nausea that began yesterday. 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 Patient states that he has been pushing fluids especially he can, but states that he still feels dehydrated. Denies drug allergies. He was seen about 9 days ago and had an incision and drainage performed to his right anterior lower leg and was placed on Bactrim as well as Keflex. Patient has continued to notice swelling to the leg, but it is improved from initial onset. Denies RAMOS, fever, neck pain, URI, CP, SOB, Abd pain. TRAVEL OUTSIDE OF THE [place] IN LAST 30 DAYS: No - Related Data Allergies/Adverse Reactions: No Known Allergies Allergy (Verified 08/23/18 14:34) Past Medical History - General Information source: Patient - Social History Smoking Status: Current Every Day Smoker Cigarette use (# per day): Yes - 10 Chew tobacco use (# tins/day): No Smoking Education Provided: Yes - Smoking cessation counseling was provided for 4 minutes at the bedside Frequency of alcohol use: Occasional Drug Abuse: None Lives with: Family Family History: Reviewed & Not Pertinent Patient has suicidal ideation: No Patient has homicidal ideation: No - Past Medical History Cardiac Medical History: Reports: Hx Hypertension Renal/ Medical History: Denies: Hx Peritoneal Dialysis Review of Systems - Review of Systems Notes: REVIEW OF SYSTEMS: CONSTITUTIONAL : Denies fever, chills, or sweats. Denies recent illness. Denies weight loss, recent hospitalizations. EENT: Denies visual changes, eye pain. Denies sore throat, oral lesions, difficulty swallowing. CARDIOVASCULAR: Denies chest pain. Denies palpitations. Denies lower extremity edema. RESPIRATORY: Denies cough. Denies shortness of breath, wheezing. GASTROINTESTINAL: Denies abdominal pain or distention. Denies nausea, vomiting , or diarrhea. Denies blood in vomitus, stools, or per rectum. Denies black, tarry stools. Denies constipation. GENITOURINARY: Denies difficulty urinating, painful urination, frequency, blood in urine, testicular pain or penile discharge. MUSCULOSKELETAL: Denies back or neck pain or stiffness. Denies joint pain or swelling. SKIN: Denies rash, lesions or sores. HEMATOLOGIC : Denies easy bruising or bleeding. LYMPHATIC: Denies swollen glands. NEUROLOGICAL: Denies confusion or altered mental status. Denies loss of consciousness. Denies dizziness or lightheadedness. Denies headache. Denies weakness or paralysis. Denies problems difficulty with ambulation, slurred speech. Denies sensory loss, numbness, or tingling. Denies seizures. PSYCHIATRIC: Denies anxiety or stress. Denies depression, suicidal ideation, or Physical Exam - Vital signs Vitals: Temp Pulse Resp BP Pulse Ox 98.3 F 85 18 142/99 H 99 08/23/18 14:45 08/23/18 14:45 08/23/18 14:45 08/23/18 14:45 08/23/18 14:45 - Notes Notes: PHYSICAL EXAMINATION: GENERAL: Well-appearing, well-nourished and in no acute distress. HEAD: Atraumatic, normocephalic. EYES: Pupils equal round and reactive to light, extraocular movements intact, sclera anicteric, conjunctiva are normal. ENT: Nares patent, oropharynx clear without exudates. Moist mucous membranes. NECK: Normal range of motion, supple without lymphadenopathy LUNGS: Breath sounds clear to auscultation bilaterally and equal. No wheezes rales or rhonchi. HEART: Regular rate and rhythm without murmurs ABDOMEN: Soft, nontender, nondistended abdomen. No guarding, no rebound. No masses appreciated. Musculoskeletal: Normal range of motion, no pitting or edema. No cyanosis. Right lower extremity with swelling at the midshaft of the tibia no fluctuance, induration or erythema. NEUROLOGICAL: Cranial nerves grossly intact. Normal speech, normal gait. Normal sensory, motor exams. PSYCH: Normal mood, normal affect. SKIN: Warm, Dry, normal turgor, no rashes or lesions noted. Course - Re-evaluation Re-evalutation: Laboratory 08/23/18 08/23/18 08/23/18 16:40 16:40 16:47 WBC 4.3 RBC 4.81 Hgb 14.7 Hct 43.2 MCV 90 MCH 30.6 MCHC 34.1 RDW 14.9 H Plt Count 247 Seg Neutrophils % 56.4 Lymphocytes % 25.7 Monocytes % 15.8 H Eosinophils % 1.2 Basophils % 0.9 Absolute Neutrophils 2.5 Absolute Lymphocytes 1.1 Absolute Monocytes 0.7 Absolute Eosinophils 0.1 Absolute Basophils 0.0 Sodium Potassium Chloride Carbon Dioxide Anion Gap BUN Creatinine Est GFR ( Amer) Est GFR (Non-Af Amer) Glucose Calcium Magnesium Total Bilirubin Direct Bilirubin Neonat Total Bilirubin Neonat Direct Bilirubin Neonat Indirect Bili AST ALT Alkaline Phosphatase Creatine Kinase Total Protein Albumin Urine Color YELLOW Urine Appearance TURBID Urine pH 5.0 Ur Specific [place] 1.030 Urine Protein 100 H Urine Glucose (UA) NEGATIVE Urine Ketones TRACE H Urine Blood NEGATIVE Urine Nitrite NEGATIVE Urine Bilirubin NEGATIVE Urine Urobilinogen 4.0 H Ur Leukocyte Esterase NEGATIVE Urine WBC (Auto) 2 Urine RBC (Auto) 1 U Hyaline Cast (Auto) 4 Squamous Epi Cells Auto 1 Urine Mucus (Auto) MANY Urine Ascorbic Acid NEGATIVE Urine Opiates Screen NEGATIVE Urine Methadone Screen NEGATIVE Ur Barbiturates Screen NEGATIVE Ur Phencyclidine Scrn NEGATIVE Ur Amphetamines Screen NEGATIVE U Benzodiazepines Scrn NEGATIVE Urine Cocaine Screen NEGATIVE U Marijuana (THC) Screen NEGATIVE 08/23/18 08/23/18 16:47 20:52 WBC RBC Hgb Hct MCV MCH MCHC RDW Plt Count Seg Neutrophils % Lymphocytes % Monocytes % Eosinophils % Basophils % Absolute Neutrophils Absolute Lymphocytes Absolute Monocytes Absolute Eosinophils Absolute Basophils Sodium 142.5 139.8 Potassium 3.7 3.8 Chloride 97 L 103 Carbon Dioxide 30 27 Anion Gap 16 10 BUN 19 17 Creatinine 1.39 H 1.08 Est GFR ( Amer) > 60 > 60 Est GFR (Non-Af Amer) 59 L > 60 Glucose 86 89 Calcium 11.0 H 9.3 Magnesium 2.0 Total Bilirubin 1.3 Direct Bilirubin 0.5 H Neonat Total Bilirubin Not Reportable Neonat Direct Bilirubin Not Reportable Neonat Indirect Bili Not Reportable AST 135 H ALT 122 H Alkaline Phosphatase 77 Creatine Kinase 709 H 610 H Total Protein 10.2 H Albumin 5.5 H Urine Color Urine Appearance Urine pH Ur Specific [place] Urine Protein Urine Glucose (UA) Urine Ketones Urine Blood Urine Nitrite Urine Bilirubin Urine Urobilinogen Ur Leukocyte Esterase Urine WBC (Auto) Urine RBC (Auto) U Hyaline Cast (Auto) Squamous Epi Cells Auto Urine Mucus (Auto) Urine Ascorbic Acid Urine Opiates Screen Urine Methadone Screen Ur Barbiturates Screen Ur Phencyclidine Scrn Ur Amphetamines Screen U Benzodiazepines Scrn Urine Cocaine Screen U Marijuana (THC) Screen Temp Pulse Resp BP Pulse Ox 98.1 F 83 18 140/90 H 100 08/23/18 22:23 08/23/18 22:23 08/23/18 22:23 08/23/18 22:23 08/23/18 22:23 Patient is a 33-year-old male with a previous history of heat exhaustion who presents complaining of generalized body cramping, anuric x36 hours and intermittent nausea that began yesterday. 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 Patient states that he has been pushing fluids especially he can, but states that he still feels dehydrated. Denies drug allergies. He was seen about 9 days ago and had an incision and drainage performed to his right anterior lower leg and was placed on Bactrim as well as Keflex. Patient received 3 L of IV fluids. Initial CMP did show mild OCTAVIO which improved on repeat laboratory testing. Patient's elevated CK also improved. 08/23/18 20:41 Bedside ultrasound of the bladder was performed and showed 110 cc of urine. Patient has been able to urinate. Bedside ultrasound was also performed on the right lower extremity and showed no definitive fluid pocket. 08/24/18 02:23 08/24/18 02:24 Patient was evaluated and treated as appropriate for the patient's presenting symptoms and complaint, with consideration of any critical or life threatening conditions that may be associated with their obtained history and exam as noted above. All results were discussed with patient. Patient provided the opportunity to ask questions, and express concerns. Patient was educated on treatments based on their presumed diagnosis as noted above. At this time we will discharge the patient with return precautions and follow-up recommendations. Verbal discharge instructions given a the bedside. Medication warnings reviewed. Patient is in agreement with this plan and has verbalized understanding of return precautions. After careful consideration I feel that that patient can be safely discharged from the emergency department, they were advised to followup with a primary care physician in 2-3 days. Dictation on this chart was performed using voice recognition software and may r esult in unintended grammatical, spelling, syntax or errors. - Vital Signs Vital signs: Temp Pulse Resp BP Pulse Ox 98.1 F 83 18 140/90 H 100 08/23/18 22:23 08/23/18 22:23 08/23/18 22:23 08/23/18 22:23 08/23/18 22:23 - Laboratory Result Diagrams: 08/23/18 16:47 08/23/18 20:52 Laboratory results interpreted by me: 08/23/18 08/23/18 08/23/18 16:40 16:47 16:47 RDW 14.9 H Monocytes % 15.8 H Chloride 97 L Creatinine 1.39 H Est GFR (Non-Af Amer) 59 L Calcium 11.0 H Direct Bilirubin 0.5 H AST 135 H ALT 122 H Creatine Kinase 709 H Total Protein 10.2 H Albumin 5.5 H Urine Protein 100 H Urine Ketones TRACE H Urine Urobilinogen 4.0 H 08/23/18 20:52 RDW Monocytes % Chloride Creatinine Est GFR (Non-Af Amer) Calcium Direct Bilirubin AST ALT Creatine Kinase 610 H Total Protein Albumin Urine Protein Urine Ketones Urine Urobilinogen Discharge - Discharge Clinical Impression: Dehydration, Acute kidney injury, Elevated CK Condition: Good Disposition: HOME, SELF-CARE Instructions: Dehydration ([facility]), Kidney Injury ([facility]), Periosteal Hematoma ([facility]) Additional Instructions: Please be sure to drink plenty of fluids while out in the heat. You can purchase packets of electrolyte replacement solutions such as Pedialyte or propel that you can add to plain water. This will help to make sure that you are getting adequate electrolytes in addition to fluids while working outside. Please return to the emergency department if you pass out, developed diffuse muscle cramping, have persistent vomiting, or have any other symptoms that are worrisome to you. Follow up with your [id number] hours for further care or return to the ED IMMEDIATELY if symptoms worsen or you have any concerns. If you cannot afford to follow up with your primary care physician a list of low cost clinics have been provided at the end of your discharge papers as well. Most prescribed medications have multiple side effects. The safest thing to do is when filling your prescription speak to your pharmacist regarding possible interactions with your normal home medications and over the counter medications such as Ibuprofen, Tylenol, Benadryl. If you experience any symptoms that cause you discomfort or concern you should discontinue the medication immediately and return to the emergency room or call your primary care physician. Forms: Elevated Blood Pressure
[2018-08-23 21:20] LABS: URINE AMPHETAMINES SCREEN NEGATIVE; URINE BARBITURATES SCREEN NEGATIVE; URINE BENZODIAZEPINES SCREEN NEGATIVE; URINE COCAINE SCREEN NEGATIVE; URINE MARIJUANA (THC) SCREEN NEGATIVE; URINE METHADONE SCREEN NEGATIVE; URINE PHENCYCLIDINE SCREEN NEGATIVE
[2018-08-23 21:27] LABS: ANION GAP 10 (5-19); BLOOD UREA NITROGEN 17 mg/dL (7-20); CALCIUM 9.3 mg/dL (8.4-10.2); CARBON DIOXIDE 27 mmol/L (22-30); CHLORIDE 103 mmol/L (98-107); CREATINE KINASE 610 U/L (55-170); GLUCOSE 89 mg/dL (75-110); POTASSIUM 3.8 mmol/L (3.6-5.0); SODIUM 139.8 mmol/L (137-145)
[2018-08-23 22:25] VITALS: BP 140/90
== END 2018-08-23 22:25 | disposition home or self-care (01) ==
LOC: ER 14:31
DX: E86.0 Dehydration (principal); N17.9 Acute kidney failure, unspecified; R74.8 Abnormal levels of other serum enzymes; M79.10 Myalgia, unspecified site; R11.0 Nausea; F17.210 Nicotine dependence, cigarettes, uncomplicated
CPT/HCPCS: 99284; 96361; 96374; 36415; 82550; 83735; 85025; 80048; 80053; 81001; 80307; J3490; J2405; J7030

== ENCOUNTER 2019-03-17 09:23 | Emergency (ER) | payer SELFPAY ==
[2019-03-17] MEDS ORDERED: LIDOCAINE 2% VISCOUS SOLN 20 ML UDCUP PO ONE (10:03)
[2019-03-17] MEDS ORDERED: MAG HYDROX/AL HYDROX/SIMETH SUSP 30 ML UDCUP PO ONE (10:03)
[2019-03-17] MEDS ORDERED: METOCLOPRAMIDE HCL ORAL SOLN 10 MG/10 ML UDCUP PO ONE (10:03)
--- NOTE | 2019-03-17 10:05 | ER Document Report ---
ED Medical Screen (RME) - General Chief Complaint: Abdominal Pain Stated Complaint: ABDOMINAL PAIN Time Seen by Provider: 03/17/19 09:59 Mode of Arrival: Medic Information source: Patient Notes: This 33-year-old male presents to the emergency department with history of pancreatitis with reports of vomiting nonstop since yesterday afternoon. Reports pancreatitis due to EtOH abuse. Reports last time he drank was Tuesday when he had 3 fingers of whiskey. Denies fever reports his whole body is achy now. Received Zofran from EMS. I have greeted and performed a rapid initial assessment of this patient. A comprehensive ED assessment and evaluation of the patient, analysis of test results and completion of the medical decision making process will be conducted by additional ED providers. Dictation of this chart was performed using voice recognition software; therefore, there may be some unintended grammatical errors. TRAVEL OUTSIDE OF THE [place] IN LAST 30 DAYS: No - Related Data Allergies/Adverse Reactions: No Known Allergies Allergy (Verified 03/17/19 09:55) Past Medical History - Social History Chew tobacco use (# tins/day): No Frequency of alcohol use: Heavy Drug Abuse: None - Past Medical History Cardiac Medical History: Reports: Hx Hypertension Renal/ Medical History: Denies: Hx Peritoneal Dialysis Physical Exam - Vital signs Vitals: Temp Pulse Resp BP Pulse Ox 98.8 F 88 16 168/88 H 97 03/17/19 09:55 03/17/19 09:55 03/17/19 09:55 03/17/19 09:55 03/17/19 09:55 Course - Vital Signs Vital signs: Temp Pulse Resp BP Pulse Ox 98.8 F 88 16 168/88 H 97 03/17/19 09:55 03/17/19 09:55 03/17/19 09:55 03/17/19 09:55 03/17/19 09:55
[2019-03-17 10:25] LABS: HEMATOCRIT 43.8 % (37.9-51.0); HEMOGLOBIN 14.9 g/dL (13.5-17.0); MEAN CORPUSCULAR HEMOGLOBIN 30.6 pg (27.0-33.4); MEAN CORPUSCULAR VOLUME 90 fl (80-97); PLATELET COUNT 180 10^3/uL (150-450); RED BLOOD COUNT 4.88 10^6/uL (4.35-5.55); RED CELL DISTRIBUTION WIDTH 13.8 % (11.5-14.0); WHITE BLOOD COUNT 8.7 10^3/uL (4.0-10.5)
[2019-03-17 10:44] LABS: ALBUMIN 5.7 g/dL (3.5-5.0); ALKALINE PHOSPHATASE 116 U/L (38-126); AMYLASE 81 U/L (30-110); BILIRUBIN,DIRECT 0.9 mg/dL (0.0-0.4); BLOOD UREA NITROGEN 14 mg/dL (7-20); CALCIUM 10.8 mg/dL (8.4-10.2); GLUCOSE 117 mg/dL (75-110); POTASSIUM 4.9 mmol/L (3.6-5.0); TOTAL PROTEIN 9.9 g/dL (6.3-8.2)
[2019-03-17 10:48] LABS: ABSOLUTE LYMPHOCYTES# (MANUAL) 0.3 10^3/uL (0.5-4.7); ABSOLUTE MONOCYTES # (MANUAL) 0.1 10^3/uL (0.1-1.4); BASOPHILS % (MANUAL) 1 % (0-2); CARBON DIOXIDE 24 mmol/L (22-30); CHLORIDE 98 mmol/L (98-107); EOSINOPHILS % (MANUAL) 0 % (0-6); LYMPHOCYTES % (MANUAL) 4 % (13-45); MONOCYTES % (MANUAL) 1 % (3-13); PLATELET COMMENT ADEQUATE; RBC MORPHOLOGY COMMENT NORMO-CYTIC/CHROMIC; SEGMENTED NEUTROPHILS % (MAN) 94 % (42-78); TOTAL CELLS COUNTED 100
--- NOTE | 2019-03-17 10:51 | RADIOLOGY REPORT (SQ) ---
EXAM DESCRIPTION: U/S ABDOMEN LIMITED W/O DOP COMPLETED DATE/TIME: 03/17/2019 10:39 am REASON FOR STUDY: epigastric pain COMPARISON: None. TECHNIQUE: Dynamic and static grayscale images acquired of the abdomen and recorded on PACS. Trumano saroj selected color Doppler and spectral images recorded. LIMITATIONS: None. FINDINGS: PANCREAS: Mildly heterogeneous, nonspecific. Correlate with pancreatic labs. LIVER: Echotextu top normal size, just under 19 cm. Re is coarse with increased echogenicity consist ent with fatty infiltration. LIVER VASCULATURE: Normal directional flow of the main portal vein and hepatic veins. GALLBLADDER: No stones. Normal wall thickness. No pericholecystic fluid. ULTRASOUND-DETECTED BETHEA'S SIGN: Negative. INTRAHEPATIC DUCTS AND COMMON DUCT: CBD and intrahepatic ducts normal caliber. No filling defects. INFERIOR VENA CAVA: Normal flow. AORTA: No aneurysm. RIGHT KIDNEY: Normal size. Normal echogenicity. No solid or suspicious masses. No hydronephros is. No calcifications. PERITONEAL AND RIGHT PLEURAL SPACE: No ascites or effusions. OTHER: No other significant finding. IMPRESSION: 1. Fatty liver. Top normal size. 2. Heterogeneous pancreas. Correlate with clinical evidence of pancreatitis and pancreatic labs. TECHNICAL DOCUMENTATION: JOB ID: [id number] [employer]- All Rights Reserved Reading location - IP/workstation name: [email or web address]
[2019-03-17 10:53] LABS: ALCOHOL < 10 mg/dL (NONE DETECTED); ANION GAP 20 (5-19)
[2019-03-17 10:56] LABS: ASPARTATE AMINO TRANSFERASE 1484 U/L (17-59)
[2019-03-17 11:23] LABS: APPEARANCE,URINE SLIGHTLY-CLOUDY; BILIRUBIN,URINE MODERATE (NEGATIVE); COLOR,URINE AMBER; GLUCOSE, URINE 50 mg/dL (NEGATIVE); KETONES,URINE 20 mg/dL (NEGATIVE); LEUKOCYTE ESTERASE,URINE NEGATIVE (NEGATIVE); NITRITE,URINE NEGATIVE (NEGATIVE); PROTEIN,URINE >=500 mg/dL (NEGATIVE); URINE SPECIFIC GRAVITY 1.031
[2019-03-17 11:29] LABS: A TYPE INFLUENZA AG NEGATIVE (NEGATIVE); B INFLUENZA AG NEGATIVE (NEGATIVE)
[2019-03-17] MEDS ORDERED: ONDANSETRON HCL INJ/PF 4 MG/2 ML SDV IV ONE (13:48)
[2019-03-17] MEDS ORDERED: FENTANYL CITRATE INJ/PF 100 MCG/2 ML AMPUL IV ONE ×2 (13:48→16:05)
[2019-03-17] MEDS ORDERED: NORMAL SALINE 1000 ML 1,000 ML IV ONE (13:49)
--- NOTE | 2019-03-17 15:25 | RADIOLOGY REPORT (SQ) ---
EXAM DESCRIPTION: CT ABD/PELVIS WITH IV ONLY COMPLETED DATE/TIME: 03/17/2019 3:10 pm REASON FOR STUDY: epigastric abd pain COMPARISON: Recent ultrasound TECHNIQUE: CT scan of the abdomen and pelvis performed using helical scanning technique with dynamic intravenous contrast injection. No oral contrast. Images reviewed with lung, soft tissue, and bone windows. Reconstructed coronal and sagittal MPR images reviewed. Delayed images for evaluation of the urinary system also acquired. All images stored on PACS. All CT scanners at this facility use dose modulation, iterative reconstruction, and/or weight based d osing when appropriate to reduce radiation dose to as low as reasonably achievable (ALARA). [facility]: Dose Right [facility]: CareDose [facility]: Dose Right [facility]: Teradose 4D [facility]: [employer] CONTRAST TYPE AND DOSE: contrast/concentration: Isovue 350.00 mg/ml; Total Contrast Delivered: 69.0 ml; Total Saline Delivered: 71.0 ml RENAL FUNCTION: GFR > 60. RADIATION DOSE: CT Rad equipment meets quality standard of care and radiation dose reduction techniq ues were employed. CTDIvol: 4.8 - 5.6 mGy. DLP: 526 mGy-cm.. LIMITATIONS: None. FINDINGS: LOWER CHEST: No significant findings. No nodules or infiltrates. LIVER: Diffusely markedly fatty. SPLEEN: Normal size. No focal lesions. PANCREAS: No masses. No significant calcifications. No adjacent inflammation or peripancreatic fluid collections. Pancreatic duct not dilated. GALLBLADDER: No identified stones by CT criteria. No inflammatory changes to suggest cholecystitis. ADRENAL GLANDS: No significant masses or asymmetry. RIGHT KIDNEY AND URETER: No solid masses. No significant calcification. No hydronephrosis or hydroure ter. LEFT KIDNEY AND URETER: No solid masses. No significant calcification. No hydronephrosis or hydrouret er. AORTA AND VESSELS: No aneurysm. No dissection. Renal arteries, SMA, celiac without stenosis. RETROPERITONEUM: No retroperitoneal adenopathy, hemorrhage or masses. BOWEL AND PERITONEAL CAVITY: No masses or inflammatory changes. No free fluid or peritoneal masses. APPENDIX: Not visualized. PELVIS: No mass. No free fluid. Normal bladder. ABDOMINAL WALL: No masses. No hernias. BONES: No significant or acute findings. OTHER: No other significant finding. IMPRESSION: 1. Hepatic steatosis. 2. No other significant abdominopelvic abnormality. No acute findings. TECHNICAL DOCUMENTATION: JOB ID: [id number] Quality ID # [id number]: Final reports with documentation of one or more dose reduction techniques (e.g., Au tomated exposure control, adjustment of the mA and/or kV according to patient size, use of iterative reconstruction technique) 2010 [employer]- All Rights Reserved Reading location - IP/workstation name: [email or web address]
[2019-03-17 16:06] VITALS: BP 176/110
--- NOTE | 2019-03-17 16:41 | ER Document Report ---
ED GI/ - General Chief Complaint: Abdominal Pain Stated Complaint: ABDOMINAL PAIN Time Seen by Provider: 03/17/19 09:59 Primary Care Provider: [facility] [Provider Group] - Follow up in 1 week [facility] [Outside] - Follow up in 1 week JORGE MOLINA MD [ACTIVE STAFF] - Follow up in 1 week (for GI follow up) Mode of Arrival: Medic TRAVEL OUTSIDE OF THE [place] IN LAST 30 DAYS: No - HPI Notes: 03/17/19 33-year-old male with history of pancreatitis and alcohol abuse to the emergency department with complaints of epigastric abdominal pain, right upper quadrant pain, nausea and vomiting for the past 2 days. He states that he last had pancreatitis in 2016 and this feels similar to him. He states he has not had a fever. He has not seen any blood in his vomit. He denies any chest pain, shortness of breath, diarrhea. He states that he drinks about a pint of alcohol every day. He has continued this habit despite being told in 2016 when he had pancreatitis that the alcohol was causing the pain pancreatitis. He has not seen a GI specialist or a primary care physician. - Related Data Allergies/Adverse Reactions: No Known Allergies Allergy (Verified 03/17/19 09:55) Past Medical History - General Information source: Patient, Relative - Social History Smoking Status: Current Every Day Smoker Chew tobacco use (# tins/day): No Frequency of alcohol use: Heavy Drug Abuse: None Lives with: Spouse/Significant other Family History: Reviewed & Not Pertinent Patient has suicidal ideation: No Patient has homicidal ideation: No - Past Medical History Cardiac Medical History: Reports: Hx Hypertension Renal/ Medical History: Denies: Hx Peritoneal Dialysis Review of Systems - Review of Systems Constitutional: denies: Chills, Fever EENT: No symptoms reported Cardiovascular: denies: Chest pain, Palpitations, Heart racing, Syncope, Dizziness, Lightheaded Respiratory: denies: Cough, Short of breath Gastrointestinal: Abdominal pain, Nausea, Vomiting. denies: Diarrhea, C onstipation, Blood streaked bowels, Blood in vomit, Rectal bleeding Genitourinary: No symptoms reported Male Genitourinary: No symptoms reported Musculoskeletal: No symptoms reported Skin: No symptoms reported Hematologic/Lymphatic: No symptoms reported Neurological/Psychological: No symptoms reported -: Yes All other systems reviewed and negative Physical Exam - Vital signs Vitals: Temp Pulse Resp BP Pulse Ox 98.8 F 88 16 168/88 H 97 03/17/19 09:55 03/17/19 09:55 03/17/19 09:55 03/17/19 09:55 03/17/19 09:55 Interpretation: Normal - General General appearance: Alert Notes: Patient and pain discomforthe rates his pain as a 5 out of 5 - HEENT Head: Normocephalic, Atraumatic Eyes: Normal Pupils: PERRL Ears: Normal External canal: Normal Tympanic membrane: Normal Sinus: Normal Nasal: Normal Mouth/Lips: Normal Pharynx: Normal. No: Potential airway comprom. Neck: Normal, Supple - Respiratory Respiratory status: No respiratory distress Chest status: Nontender. No: Accessory muscle use Breath sounds: Normal. No: Productive cough, Rales, Rhonchi, Stridor, Wheezing Chest palpation: Normal - Cardiovascular Rhythm: Regular Heart sounds: Normal auscultation Murmur: No - Abdominal Inspection: Normal Distension: No distension. No: Tympanitic, Fluid wave, Distended bladder Bowel sounds: Normal Tenderness: Tender, Guarding - There is tenderness to palpation over the epigastrium and to the right upper quadrant. Patient guards with palpation of the epigastrium. Negative Whyte sign. There is no CVA tenderness. The liver appears to be enlarged. No: McBurney's point Organomegaly: Hepatomegaly - Back Back: Normal, Nontender. 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 No: Pronator drift Sensory: Normal - Psychological Associated symptoms: Normal affect, Normal mood - Skin Skin Temperature: Warm Skin Moisture: Dry Skin Color: Normal Course - Re-evaluation Re-evalutation: 03/17/[address] Leon, ER attending. We discussed lab work as well as imaging studies. Patient has been tolerating p.o. ice chips and his pain is much improved after pain control. Dr. Alberto and I agree that patient can be discharged safely with close outpatient follow-up with primary care and GI specialist. Likely this is a chronic pancreatitis because patient continues to drink. We will send home with pain control and antiemetics. Have encouraged patient to return if any worsening pain, intractable vomiting, fevers. I have given him information for follow-up with [facility] for alcohol rehab if he desires. Patient voices understanding and agrees with the plan. Impression: Likely mildly acute on chronic pancreatitis with alcoholic gastritis. Noted AST that is significantly more elevated than the other liver enzymes. There does not appear to be an acute alcoholic hepatitis and CT and ultrasound are negative for an acute pancreatitis with pseudocyst or abscess or gallbladder problem. Will discharge patient home and give GI and PCP follow-up - Vital Signs Vital signs: Temp Pulse Resp BP Pulse Ox 99.1 F 84 17 176/110 H 97 03/17/19 16:05 03/17/19 16:05 03/17/19 16:05 03/17/19 16:05 03/17/19 09:55 - Laboratory Result Diagrams: 03/17/19 10:12 03/17/19 10:12 Laboratory results interpreted by me: 03/17/19 03/17/19 03/17/19 10:12 10:12 11:10 Seg Neuts % (Manual) 94 H Lymphocytes % (Manual) 4 L Monocytes % (Manual) 1 L Abs Lymphs (Manual) 0.3 L Anion Gap 20 H Glucose 117 H Calcium 10.8 H Total Bilirubin 2.0 H Direct Bilirubin 0.9 H AST 1484 H Total Protein 9.9 H Albumin 5.7 H Lipase 317.8 H Urine Protein >=500 H Urine Glucose (UA) 50 H Urine Ketones 20 H Urine Blood SMALL H Urine Bilirubin MODERATE H Urine Urobilinogen 4.0 H - Diagnostic Test Radiology reviewed: Image reviewed, Reports reviewed Discharge - Discharge Clinical Impression: Elevated blood pressure reading, Epigastric pain, Liver enzyme elevation, Alcohol abuse Pancreatitis, chronic Qualifiers: Pancreatitis type: alcohol induced Qualified Code(s): K86.0 - Alcohol-induced chronic pancreatitis Alcoholic gastritis without bleeding Qualifiers: Chronicity: acute Qualified Code(s): K29.20 - Alcoholic gastritis without bleeding Condition: Stable Disposition: HOME, SELF-CARE Instructions: Chronic Alcoholism ([facility]), Gastritis ([facility]), Pancreatitis ([facility]) Additional Instructions: PUSH CLEAR LIQUIDS. USE PAIN MEDICINES AND ANTI-NAUSEA MEDICINES PRESCRIBED. RETURN IF ANY FEVERS, INTRACTABLE VOMITING, INTRACTABLE ABDOMINAL PAIN OR ANY OTHER CONCERNS. FOLLOW UP WITH GI and PRIMARY CARE. Prescriptions: Oxycodone HCl/Acetaminophen [Percocet 5-325 mg Tablet] 1 tab PO Q6H PRN #10 tablet PRN Reason: Ondansetron [Zofran Odt 4 mg Tablet] 1 - 2 tab PO Q4H PRN #15 tab.rapdis PRN Reason: For Nausea/Vomiting Referrals: JORGE MOLINA MD [ACTIVE STAFF] - Follow up in 1 week (for GI follow up) [facility] [Outside] - Follow up in 1 week [facility] [Provider Group] - Follow up in 1 week
== END 2019-03-17 16:45 | disposition home or self-care (01) ==
LOC: ER 09:23
DX: K86.0 Alcohol-induced chronic pancreatitis (principal); K29.20 Alcoholic gastritis without bleeding; F10.10 Alcohol abuse, uncomplicated; R74.0 Nonspecific elevation of levels of transaminase and lactic acid dehydrogenase [LDH]; R10.13 Epigastric pain; R10.11 Right upper quadrant pain; R10.816 Epigastric abdominal tenderness; R10.811 Right upper quadrant abdominal tenderness; R11.2 Nausea with vomiting, unspecified; F17.200 Nicotine dependence, unspecified, uncomplicated; I10 Essential (primary) hypertension
CPT/HCPCS: 96376; 99284; 96361; 96374; 96375; 36415; 80307; 82150; 83690; 85025; 80053; 81001; 87804; 76705; 74177; J3010; J3490; J2405; J7030